=== PATIENT | male | born 1945 | race Caucasian/White ===

== ENCOUNTER 2017-04-17 13:35 | Outpatient (CLI) | payer MEDICARE, OTHER ==
[2017-04-17] MEDS ORDERED: IOHEXOL-350 100 ML VIAL IV ONE (14:11)
[2017-04-17] MEDS ORDERED: IV NS 0.9% 250 ML IV ONE (14:11)
[2017-04-17] MEDS ORDERED: VERAPAMIL HCL IV 5 MG/2 ML VIAL ONE (15:53)
[2017-04-17] MEDS ORDERED: METOPROLOL TARTRATE INJ 5 MG/5 ML AMPUL ONE (16:20)
== END 2017-04-17 23:59 | disposition home or self-care (01) ==
LOC: CT 13:35
PROVIDERS: ATTEND Internal Medicine Cardiovascular Disease
DX: I25.10 Atherosclerotic heart disease of native coronary artery without angina pectoris (principal); R59.9 Enlarged lymph nodes, unspecified
CPT/HCPCS: 75574; J3490 ×4; J7050; Q9967